=== PATIENT | female | born 2000 | race Caucasian/White ===

== ENCOUNTER 2020-06-28 08:56 | Emergency (ER) | payer OTHER ==
[2020-06-28 09:13] VITALS: BP 123/72; PULSE 74; TEMP 98.3; BMI 42.0
--- OUTSIDE RECORDS SUMMARY | 2020-06-28 09:22 | XMS ---
:2000 Author Organization [facility] Support Name Relationship Address Phone BOBBY Unavailable Unavailable Unavailable PATRICK NORTH MOTHER [address] [place] [address] Re-disclosure Warning The records that you are about to access may contain information from federally- assisted alcohol or drug abuse programs. If such information is present, then the following federally mandated warning applies: This information has been disclosed to you from records protected by federal confidentiality rules (42 CFR part 2). The federal rules prohibit you from making any further disclosure of this information unless further disclosure is expressly permitted by the written consent of the person to whom it pertains or as otherwise permitted by 42 CFR part 2. A general authorization for the release of medical or other information is NOT sufficient for this purpose. The Federal rules restrict any use of the information to criminally investigate or prosecute any alcohol or drug abuse patient.The records that you are about to access may contain highly sensitive health information, the redisclosure of which is protected by Article 27-F of the [facility] Public Health law. If you continue you may haveaccess to information: Regarding HIV / AIDS; Provided by facilities licensed or operated by the [facility] Office of Mental Health; or Provided by the [facility] Office for People With Developmental Disabilities. If such information is present, then the following [facility] mandated warning applies: This information has been disclosed to you from confidential records which are protected by state law. State law prohibits you from making any further disclosure of this information without the specific written consent of the person to whom it pertains, or as otherwise permitted by law. Any unauthorized further disclosure in violation of state law may result in a fine or half-way sentence or both. A general authorization for the release of medical or other information is NOT sufficient authorization for further disclosure. Insurance Providers Payer name Policy type Policy ID Covered Covered libertarian's Policy P roque / Coverage libertarian ID relationship to Tena Inf ormation type tena [employer] MEDICAID [id number] [facility]
[2020-06-28] MEDS ORDERED: IBUPROFEN 600 MG TABLET (FP) PO ONE ×2 (09:32→09:38)
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
== END 2020-06-28 09:44 | disposition home or self-care (01) ==
LOC: JERFT 08:56
DX: M62.838 Other muscle spasm (principal); M79.601 Pain in right arm
CPT/HCPCS: 99283-25

== ENCOUNTER 2021-06-28 13:04 | Emergency (ER) | payer BC, OTHER ==
[2021-06-28 13:18] VITALS: BP 135/48; PULSE 94; TEMP 97.5; BMI 40.2
[2021-06-28] MEDS ORDERED: MECLIZINE HCL 25 MG TABLET (FP) PO ONE (13:42)
[2021-06-28] MEDS ORDERED: METOCLOPRAMIDE HCL INJECTION 10 MG/2 ML VIAL IVPB ONE (13:42)
[2021-06-28] MEDS ORDERED: METOCLOPRAMIDE HCL INJECTION 10 MG/2 ML VIAL ONE (14:52)
[2021-06-28] MEDS ORDERED: MECLIZINE HCL 25 MG TABLET (FP) ONE (14:52)
== END 2021-06-28 17:02 | disposition home or self-care (01) ==
LOC: JER 13:04
PROC: 3E033GC Introduction of Other Therapeutic Substance into Peripheral Vein, Percutaneous Approach (ICD-10-PCS; principal; 2021-06-28)
PROC: 3E033GC Introduction of Other Therapeutic Substance into Peripheral Vein, Percutaneous Approach (ICD-10-PCS; 2021-06-28)
DX: R42 Dizziness and giddiness (principal)
CPT/HCPCS: 93005; 93010; 99284-25

== ENCOUNTER 2025-02-11 15:52 | Emergency (ER) | payer OTHER ==
[2025-02-11 16:13] VITALS: BP 123/56; PULSE 74; RESP 19; TEMP 99.1; BMI 41.3
[2025-02-11] MEDS ORDERED: CALMINE 3% & PRAMOXINE 1% (AVEENO ANTI-ITCH) BOTTLE TP ONE (16:27)
[2025-02-11] MEDS ORDERED: ACETAMINOPHEN 500 MG TABLET (FP) ONE (16:30)
[2025-02-11] MEDS: ACETAMINOPHEN 500 MG TABLET (FP) PO ONE (16:32)
== END 2025-02-11 17:00 | disposition home or self-care (01) ==
LOC: JERFT 15:52
DX: L55.9 Sunburn, unspecified (principal); L29.9 Pruritus, unspecified; L53.9 Erythematous condition, unspecified; R21 Rash and other nonspecific skin eruption; R42 Dizziness and giddiness
CPT/HCPCS: 99282-25